=== PATIENT | male | born 1955 | race Caucasian/White ===

== ENCOUNTER → 2020-11-12 | Outpatient (CLI) | payer MEDICARE, OTHER ==
--- NOTE | 2020-11-12 14:11 | 2DMMODE ---
[facility] [place] [address] 2 D/M-MODE ECHOCARDIOGRAM Name: JOSYABAD Room #: REG JAKUBAngely Brown#: [id number] Admission: 11/12/20 Attend Phys: Physician not on staff Discharge: Date of : 55 Report #: [id number] THIS REPORT FOR: cc: [facility] - Family physician unknown FAM - Family physician unknown Aditya Viera MD [facility] ~ APPROVED REPORT Study performed: 11/12/2020 10:58:31 EXAM: Comprehensive 2D, Doppler, and color-flow Echocardiogram Patient Location: Out-Patient Room #: 2 Status: routine BSA: 2.17 HR: 87 bpm BP: 130/62 mmHg Rhythm: NSR Other Information Study Quality: Technically Difficult Technically limited study due to inability to position patient. Indications Pulmonary Embolism 2D Dimensions RVDd: 29.71 mm IVSd: 9.27 (7-11mm) LVOT Diam: 22.95 (18-24mm) LVDd: 46.92 mm PWd: 9.58 (7-11mm) Ascending Ao: 42.86 (22-36mm) LVDs: 32.18 (25-40mm) Aortic Root: 30.43 mm IVC: 20.00 mm Volumes Left Atrial Volume (Systole) Single Plane 4CH: 31.26 mL Single Plane 2CH: 66.33 mL LA ESV Index: 24.00 mL/m2 Aortic Valve AoV Peak Villa.: 1.41 m/s AO Peak Gr.: 7.96 mmHg LVOT Max P.54 mmHg LVOT Max V: 1.07 m/s [facility] [address] [place] [address] 2 D/M-MODE ECHOCARDIOGRAM Name: ABAD FERRIS Room #: REG JAKUB Brown#: [id number] Admission: 11/12/20 Attend Phys: Physician not on s Discharge: Date of : 55 Report #: [id number] TIRSO Vmax: 3.12 cm2 Mitral Valve MVA Planimetry: 949.60 mm2 Pulmonary Valve PV Peak Villa.: 1.19 m/s PV Peak Gr.: 5.62 mmHg Tricuspid Valve TR Peak Vlila.: 2.41 m/s TR Peak Gr.: 23.25 mmHg PA Pressure: 33.00 mmHg Left Ventricle The left ventricle is normal size. There is normal LV segmental wall motion. There is normal left ventricular wall thickness. The left ventricular systolic function is normal. The left ventricular ejection fraction is within the normal range. LVEF is 55-60%. The left ventricular diastolic function is normal. Right Ventricle The right ventricle is normal size. The right ventricular systolic function is normal. Atria The left atrium size is normal. The right atrium size is normal. Aortic Valve The aortic valve is normal in structure. No aortic regurgitation is present. There is no aortic valvular stenosis. Mitral Valve The mitral valve is normal in structure. Trace mitral regurgitation. No evidence of mitral valve stenosis. Tricuspid Valve The tricuspid valve is normal in structure. There is mild tricuspid regurgitation. AeSTIMATED pap 33 mmHg. There is mild pulmonary hypertension. Pulmonic Valve The pulmonary valve is normal in structure. There is no pulmonic valvular regurgitation. 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 Pericardium There is no pericardial effusion. <Conclusion> Normal left ventricle size/wall thickness Ejection fraction 60% Normal right ventricular size Normal atrial size Color-flow Doppler study was performed of the aortic/mitral/tricuspid/pulmonary valve Normal aortic/mitral valve structure and function Mild tricuspid valve insufficiency Pulmonary systolic pressure estimated 33 mmHg Normal aortic root size Normal IVC size and response to respiration No pericardial effusion <ELECTRONICALLY SIGNED> By: Aditya Viera MD, [facility] 11/12/20 1411 [id number] Aditya Viera MD, FACC /INF
== END ==
LOC: CV 11:50
DX: I07.1 Rheumatic tricuspid insufficiency (principal); I26.94 Multiple subsegmental thrombotic pulmonary emboli without acute cor pulmonale